=== PATIENT | female | born 1940 | race Hispanic/Latino ===

== ENCOUNTER 2020-02-07 06:44 | Observation (INO) | payer MEDICARE ==
[2020-02-05 15:06] LABS: BASOPHILS % 0.5 % (0.0-1.0); EOSINOPHILS # (AUTO) 0.1 (0.0-0.4); EOSINOPHILS % 1.5 % (0.0-6.0); HEMATOCRIT 34.2 % (34.2-44.1); HEMOGLOBIN 11.2 g/dL (12.0-16.0); LYMPHOCYTES # (AUTO) 2.3 (1.0-3.2); LYMPHOCYTES % 28.6 % (18.0-39.1); MEAN CORPUSCULAR HEMOGLOBIN 31.5 pg (28-32); MEAN CORPUSCULAR HGB CONC 32.7 g/dL (31-35); MEAN CORPUSCULAR VOLUME 96.1 fL (81-99); MONOCYTES # (AUTO) 0.7 (0.2-0.8); MONOCYTES % 8.8 % (4.4-11.3); NEUTROPHILS # (AUTO) 4.9 (2.1-6.9); NEUTROPHILS % 60.1 % (38.7-80.0); PLATELET COUNT 154 x10e3/uL (140-360); RED BLOOD COUNT 3.56 x10e6/uL (3.6-5.1); RED CELL DISTRIBUTION WIDTH 13.4 % (11.7-14.4)
[2020-02-05 15:25] LABS: INR 1.07; PROTHROMBIN TIME 14.4 seconds (11.9-14.5)
[2020-02-05 15:30] LABS: ANION GAP 16.5 mmol/L (8-16); CALCIUM 9.9 mg/dL (8.4-10.2); CREATININE, SERUM 1.11 mg/dL (0.57-1.11); POTASSIUM 4.5 mmol/L (3.5-5.1)
[~2020-02-07] VITALS: Ht 162.6 cm; Wt 77.6 kg
[~2020-02-07 06:44] MED LIST: ATORVASTATIN CA20 MG PO; BREO ELLIPTA 21 EACH INH; CARVEDILOL12.5 MG PO; CYMBALTA20 MG PO; DYMISTA NASAL S23 GM; ELIQUIS5 M1 PO; FISH OIL 1,0001 EAC2 PO; GABAPENTIN300 MG PO; KETOCONAZOLE 2%30 GM TOP; LEVEMIR FL100 UNIT/1 SC; LOSARTAN-HCTZ1 EAC1 PO; MECLIZINE HCL12.5 MG PO; METHENAMINE HIPP1 GM PO; NEOMYCIN-POLYMY10 ML EACH EAR; NOVOLOG100 UNIT/1 SC; OMEPRAZOLE40 MG PO; TUMS ULTRA400 MG PO; TYLENOL EXTRA500 MG PO
[2020-02-07] MEDS ORDERED: ACETAMINOPHEN 1000 MG/100 ML 100 ML IV ONE (07:28)
[2020-02-07] MEDS ORDERED: LIDOCAINE HCL (LTA) 4 ML SOLN ONE (07:28)
[2020-02-07] MEDS ORDERED: IBUPROFEN 800MG/ 200ML 200 ML IV ONE (07:28)
[2020-02-07] MEDS ORDERED: CEFAZOLIN SOD 1 GM/NS 50ML 100 ML IV ONE (08:05)
[2020-02-07] MEDS ORDERED: LIDOCAINE 2%/ EPINEPHRINE 20ML MDV ONE (08:35)
[2020-02-07] MEDS ORDERED: VANCOMYCIN HCL 1 GM VIAL ONE (08:35)
[2020-02-07] MEDS ORDERED: THROMBIN FOR SOLN 5,000 UNIT VIAL ONE (08:36)
[2020-02-07] MEDS ORDERED: DULOXETINE HCL 20 MG DELAYED RELEASE PO PRN (12:00)
[2020-02-07] MEDS ORDERED: OXYCODONE/ACETAMINOPHEN 5-325 1 EACH TABLET PO PRN (12:00)
[2020-02-07] MEDS ORDERED: ACETAMINOPHEN 325 MG TAB PO PRN (12:00)
[2020-02-07] MEDS ORDERED: NEOMYCIN/POLYMYX/HYDROC (OTIC) 10 ML BTL EACH EAR PRN (12:00)
[2020-02-07] MEDS ORDERED: NIACINAMIDE TOP PRN (12:00)
[2020-02-07] MEDS ORDERED: [UNRECOGNIZED DRUG - OTHER] TOP PRN (12:00)
[2020-02-07] MEDS ORDERED: ONDANSETRON HCL INJ 2MG/ML 2ML 2 MG/ML VIAL IV PRN (12:00)
[2020-02-07] MEDS ORDERED: MORPHINE SULFATE 5 MG/ML VIAL IM PRN (12:00)
[2020-02-07] MEDS ORDERED: KETOCONAZOLE TOP PRN (12:00)
[2020-02-07] MEDS ORDERED: ZOLPIDEM TARTRATE 5 MG TAB PO PRN (12:00)
[2020-02-07] MEDS ORDERED: PANTOPRAZOLE SOD 40 MG TABEC PO PRN (12:00)
[2020-02-07] MEDS ORDERED: FLUTICASONE NS PRN (12:00)
[2020-02-07] MEDS ORDERED: PROMETHAZINE HCL (IM) 25 MG/ML VIAL IM PRN (12:00)
[2020-02-07] MEDS ORDERED: AZELASTINE NS PRN (12:00)
[2020-02-07] MEDS ORDERED: MAGNESIUM/ALUMINUM/SIMETHICONE 30 ML UDC PO PRN (12:00)
[2020-02-07] MEDS ORDERED: CARISOPRODOL 350 MG TAB PO PRN (12:00)
[2020-02-07] MEDS ORDERED: MECLIZINE HCL 12.5 MG TAB PO PRN (12:00)
[2020-02-07] MEDS ORDERED: HYDROMORPHONE 2MG/ML 2 MG/ML ML IV PRN (12:00)
[2020-02-07] MEDS ORDERED: NEOSTIGMINE 1 MG/ML 10ML VIAL ONE (12:04)
[2020-02-07] MEDS ORDERED: ROCURONIUM BROMIDE 10 MG/ML 5ML VIAL IV ONE (12:04)
[2020-02-07] MEDS ORDERED: PROPOFOL IV EMULSION 10 MG/ML 20 ML VIAL ONE (12:04)
[2020-02-07] MEDS ORDERED: LIDOCAINE HCL 2% LOCAL INJ 5 ML SDV VIAL INJ ONE (12:04)
[2020-02-07] MEDS ORDERED: DEXAMETHASONE SOD PHOS INJ 4 MG/ML VIAL ONE (12:04)
[2020-02-07] MEDS ORDERED: SEVOFLURANE INHAL SOLN 250 ML PEN BTL ONE (12:04)
[2020-02-07] MEDS ORDERED: EPHEDRINE SULFATE INJ 50 MG/ML VIAL ONE (12:04)
[2020-02-07] MEDS ORDERED: ONDANSETRON HCL INJ 2MG/ML 2ML 2 MG/ML VIAL ONE (12:04)
[2020-02-07] MEDS ORDERED: LIDOCAINE HCL 2% JELLY 5 ML TUBE ONE (12:04)
[2020-02-07] MEDS ORDERED: GLYCOPYRROLATE INJ 0.2 MG/ML VIAL ONE (12:04)
[2020-02-07] MEDS ORDERED: CALCIUM CARBONATE 500 MG CHEWABLE TABS PO PRN (13:30)
[2020-02-07] MEDS ORDERED: MORPHINE SULFATE INJ 4 MG/ML INJ 1ML IM PRN (13:45)
[2020-02-07] MEDS ORDERED: HYDROMORPHONE 1MG/1ML INJ IV PRN (13:45)
[2020-02-07 13:52] VITALS: BP 165/61
[2020-02-07 14:08] VITALS: BP 165/61
[2020-02-07] MEDS: GABAPENTIN 300 MG CAP PO SCH ×2 (14:47→21:27)
[2020-02-07] MEDS: LACTATED RINGER'S 1,000 ML IV SCH ×2 (14:47→20:20)
[2020-02-07] MEDS: CEFAZOLIN SOD 1 GM/NS 50ML 50 ML IV SCH ×2 (14:47→21:36)
[2020-02-07 16:58] VITALS: BP 133/52
[2020-02-07] MEDS: INSULIN GLARGINE 100 UNITS/ML VIAL SQ SCH (17:00)
[2020-02-07] MEDS ORDERED: METHENAMINE HIPPURATE PO SCH (17:00)
[2020-02-07] MEDS ORDERED: NON-FORMULARY MEDICATION (Insulin Detemir (Levemir Flextouch) 40 UNITS) SC SCH (17:00)
[2020-02-07] MEDS: CARVEDILOL 12.5 MG TAB PO SCH (17:26)
[2020-02-07] MEDS: INSULIN LISPRO 100 UNIT/1 ML 3ML VIAL SQ SCH ×2 (17:27→21:00)
[2020-02-07 20:00] VITALS: BP 109/40
[2020-02-07] MEDS ORDERED: ATORVASTATIN 20 MG TAB PO SCH (21:00)
[2020-02-07] MEDS ORDERED: LOSARTAN POTASSIUM 100 MG TAB PO SCH (21:00)
[2020-02-07] MEDS ORDERED: NON-FORMULARY MEDICATION (Losartan/Hydrochlorothiazide (Losartan-Hctz 100-25 Mg Tab) 1 TAB PO SCH (21:00)
[2020-02-07] MEDS ORDERED: HYDROCHLOROTHIAZIDE 25 MG TAB PO SCH (21:00)
[2020-02-07] MEDS ORDERED: ATORVASTATIN 40 MG TAB PO SCH (21:00)
[2020-02-08] VITALS: BP 107/38
[2020-02-08 04:00] VITALS: BP 115/48
[2020-02-08] MEDS: LACTATED RINGER'S 1,000 ML IV SCH (04:40)
[2020-02-08] MEDS: CEFAZOLIN SOD 1 GM/NS 50ML 50 ML IV SCH (06:57)
[2020-02-08 08:00] VITALS: BP 115/48
[2020-02-08 08:30] VITALS: BP 132/52
[2020-02-08] MEDS: CARVEDILOL 12.5 MG TAB PO SCH (08:54)
[2020-02-08] MEDS: GABAPENTIN 300 MG CAP PO SCH (08:54)
[2020-02-08] MEDS ORDERED: NON-FORMULARY MEDICATION (Omega-3 Fatty Acids/Fish Oil (Fish Oil 1,000 Mg Capsule) 1,000 M PO SCH (09:00)
[2020-02-08] MEDS ORDERED: VILANTEROL INH SCH (09:00)
[2020-02-08] MEDS ORDERED: [UNRECOGNIZED DRUG - OTHER] INH SCH (09:00)
[2020-02-08] MEDS ORDERED: OMEGA 3 POLYUNSAT FATTY ACIDS 1000 MG SOFTGEL PO SCH (09:00)
[2020-02-08] MEDS: INSULIN LISPRO 100 UNIT/1 ML 3ML VIAL SQ SCH (09:27)
[2020-02-08] MEDS: INSULIN GLARGINE 100 UNITS/ML VIAL SQ SCH (09:27)
== END 2020-02-08 10:01 | disposition home or self-care (01) ==
LOC: OR 06:44 → PACU V 11:50 → MED/SURG 13:02
PROVIDERS: ADMIT Neurological Surgery; ATTEND Neurological Surgery
DX: M48.062 Spinal stenosis, lumbar region with neurogenic claudication (principal); Z20.828 Contact with and (suspected) exposure to other viral communicable diseases; Z01.818 Encounter for other preprocedural examination; J44.9 Chronic obstructive pulmonary disease, unspecified; I25.10 Atherosclerotic heart disease of native coronary artery without angina pectoris; Z95.1 Presence of aortocoronary bypass graft; E11.9 Type 2 diabetes mellitus without complications; E78.5 Hyperlipidemia, unspecified; M19.90 Unspecified osteoarthritis, unspecified site
CPT/HCPCS: 36415 ×3; 63047; 63048; 71046; 72020; 80048; 82948 ×2; 85025; 85610; 85730; 86850; 86900; 88304; 88311; 93005; G0378 ×2; J0131; J0690 ×2; J1100; J1815; J2001 ×3; J2405; J2704; J2710; J3370; J7121; U0002

== ENCOUNTER → 2022-05-13 | Outpatient (CLI) | payer MEDICARE | LOC: CT 11:35 | PROVIDERS: ATTEND Nurse Practitioner Adult Health | DX: M25.551 Pain in right hip (principal) ==

== ENCOUNTER 2022-07-01 17:15 | Inpatient (IN) | payer MEDICARE, OTHER ==
[~2022-07-01] VITALS: Ht 162.6 cm; Wt 77.6 kg
[2022-07-01 18:20] LABS: CLARITY,URINE CLEAR (CLEAR); COLOR,URINE YELLOW (YELLOW); KETONES,URINE NEGATIVE (NEGATIVE); LEUKOCYTE ESTERASE ,URINE NEGATIVE (NEGATIVE); NITRITE,URINE NEGATIVE (NEGATIVE); PROTEIN,URINE DIPSTICK NEGATIVE (NEGATIVE); URINE UROBILINOGEN 0.2 mg/dL (0.2 - 1)
[2022-07-01 18:27] LABS: BACTERIA,URINE FEW /HPF; EPITHELIAL CELLS,URINE MODERATE /LPF; WBC,URINE (MAN) 0-5 /HPF (0-5)
[2022-07-01 18:43] LABS: BASOPHILS % 0.7 % (0.0-1.0); EOSINOPHILS # (AUTO) 0.2 (0.0-0.4); EOSINOPHILS % 3.5 % (0.0-6.0); HEMATOCRIT 34.2 % (34.2-44.1); HEMOGLOBIN 11.3 g/dL (12.0-16.0); LYMPHOCYTES # (AUTO) 1.6 (1.0-3.2); LYMPHOCYTES % 28.1 % (18.0-39.1); MEAN CORPUSCULAR HEMOGLOBIN 31.4 pg (28-32); MONOCYTES # (AUTO) 0.5 (0.2-0.8); NEUTROPHILS # (AUTO) 3.4 (2.1-6.9); NEUTROPHILS % 58.2 % (38.7-80.0); PLATELET COUNT 136 x10e3/uL (140-360); RED CELL DISTRIBUTION WIDTH 13.2 % (11.7-14.4)
[2022-07-01 19:01] LABS: ALBUMIN/GLOBULIN RATIO 1.5 (0.8-2.0); ANION GAP 14.2 mmol/L (8-16); CALCIUM 9.8 mg/dL (8.4-10.2); CREATININE, SERUM 1.05 mg/dL (0.57-1.11); POTASSIUM 4.2 mmol/L (3.5-5.1)
[2022-07-01] MEDS ORDERED: SODIUM CHLORIDE 0.9% 1000ML 1,000 ML IV STA (19:05)
[2022-07-01] MEDS ORDERED: ONDANSETRON HCL INJ 2MG/ML 2ML 2 MG/ML VIAL IV STA (19:05)
[2022-07-01] MEDS ORDERED: Morphine 4mg INJECTION 4 MG/ML INJ IV STA (19:05)
[2022-07-01] MEDS ORDERED: IOPAMIDOL 370 MG/ML 100 ML INFUS..BTL INJ ONE (19:16)
[2022-07-01 20:20] LABS: CREATINE KINASE MB 2.8 ng/mL (0-5.0)
[2022-07-01] MEDS ORDERED: DICYCLOMINE HCL10 MG PO (21:41)
[2022-07-01] MEDS ORDERED: Morphine 4mg INJECTION 4 MG/ML INJ IV PRN (22:00)
[2022-07-01] MEDS: SODIUM CHLORIDE 0.9% 1000ML 1,000 ML IV SCH (22:41)
[2022-07-02] VITALS (12 sets, daily range): BP systolic 122–156; BP diastolic 57–79; PULSE 64–76; RESP 16–18; TEMP 97.6–98.6; O2SAT 96–100
[2022-07-02] MEDS: ONDANSETRON HCL INJ 2MG/ML 2ML 2 MG/ML VIAL IV PRN ×3 (00:33→14:18)
[2022-07-02 05:56] LABS: BASOPHILS % 0.7 % (0.0-1.0); EOSINOPHILS # (AUTO) 0.1 (0.0-0.4); EOSINOPHILS % 2.3 % (0.0-6.0); HEMATOCRIT 31.1 % (34.2-44.1); HEMOGLOBIN 9.9 g/dL (12.0-16.0); LYMPHOCYTES # (AUTO) 1.6 (1.0-3.2); LYMPHOCYTES % 36.2 % (18.0-39.1); MEAN CORPUSCULAR HEMOGLOBIN 30.9 pg (28-32); MEAN CORPUSCULAR HGB CONC 31.8 g/dL (31-35); MEAN CORPUSCULAR VOLUME 97.2 fL (81-99); MONOCYTES # (AUTO) 0.4 (0.2-0.8); MONOCYTES % 9.2 % (4.4-11.3); NEUTROPHILS # (AUTO) 2.2 (2.1-6.9); NEUTROPHILS % 51.1 % (38.7-80.0); PLATELET COUNT 117 x10e3/uL (140-360); RED CELL DISTRIBUTION WIDTH 13.2 % (11.7-14.4)
[2022-07-02] MEDS: SODIUM CHLORIDE 0.9% 1000ML 1,000 ML IV SCH ×3 (06:06→21:10)
[2022-07-02 06:26] LABS: ALBUMIN 3.3 g/dL (3.5-5.0); ALBUMIN/GLOBULIN RATIO 1.4 (0.8-2.0); ANION GAP 10.9 mmol/L (8-16); CALCIUM 8.8 mg/dL (8.4-10.2); CREATININE, SERUM 0.91 mg/dL (0.57-1.11); POTASSIUM 3.9 mmol/L (3.5-5.1)
[2022-07-02 06:56] LABS: CREATINE KINASE MB 2.1 ng/mL (0-5.0)
[2022-07-02 14:55] LABS: CREATINE KINASE MB 1.7 ng/mL (0-5.0)
[2022-07-02] MEDS ORDERED: DEXTROSE 50% SYRINGE 50 ML IV PRN (17:30)
[2022-07-02] MEDS ORDERED: ACETAMINOPHEN 325 MG TAB PO PRN (18:45)
[2022-07-02] MEDS ORDERED: DULOXETINE HCL 20 MG DELAYED RELEASE PO PRN (18:45)
[2022-07-02] MEDS: METOCLOPRAMIDE HCL 10 MG/2ML VIAL IV SCH (18:49)
[2022-07-02] MEDS ORDERED: METOCLOPRAMIDE HCL 10 MG/2ML VIAL IV SCH (21:00)
[2022-07-02] MEDS: ATORVASTATIN 40 MG TAB PO SCH (21:10)
[2022-07-02] MEDS: INSULIN LISPRO 100 UNIT/1 ML 3ML VIAL SQ SCH (21:32)
[2022-07-03] VITALS (7 sets, daily range): BP systolic 116–135; BP diastolic 52–101; PULSE 62–70; RESP 17–20; TEMP 97.1–98.6; O2SAT 96–100
[2022-07-03] MEDS: ONDANSETRON HCL INJ 2MG/ML 2ML 2 MG/ML VIAL IV PRN (00:08)
[2022-07-03 00:33] LABS: % IRON SATURATION 35 % (15-50); IRON 131 ug/dL (50-170); TOTAL IRON BINDING CAPACITY 378 ug/dL (261-478); TRANSFERRIN 270 mg/dL (180-382)
[2022-07-03] MEDS: METOCLOPRAMIDE HCL 10 MG/2ML VIAL IV SCH ×2 (05:28→15:51)
[2022-07-03] MEDS: SODIUM CHLORIDE 0.9% 1000ML 1,000 ML IV SCH ×3 (05:30→21:39)
[2022-07-03 06:49] LABS: BASOPHILS % 0.8 % (0.0-1.0); EOSINOPHILS # (AUTO) 0.2 (0.0-0.4); EOSINOPHILS % 3.3 % (0.0-6.0); HEMATOCRIT 30.8 % (34.2-44.1); HEMOGLOBIN 9.7 g/dL (12.0-16.0); LYMPHOCYTES # (AUTO) 1.5 (1.0-3.2); LYMPHOCYTES % 31.5 % (18.0-39.1); MEAN CORPUSCULAR HEMOGLOBIN 31.1 pg (28-32); MEAN CORPUSCULAR HGB CONC 31.5 g/dL (31-35); MEAN CORPUSCULAR VOLUME 98.7 fL (81-99); MONOCYTES # (AUTO) 0.4 (0.2-0.8); MONOCYTES % 9.2 % (4.4-11.3); NEUTROPHILS # (AUTO) 2.6 (2.1-6.9); NEUTROPHILS % 54.8 % (38.7-80.0); PLATELET COUNT 99 x10e3/uL (140-360); RED BLOOD COUNT 3.12 x10e6/uL (3.6-5.1)
[2022-07-03 07:08] LABS: CREATINE KINASE MB 1.4 ng/mL (0-5.0)
[2022-07-03 07:09] LABS: ALBUMIN 3.1 g/dL (3.5-5.0); ALBUMIN/GLOBULIN RATIO 1.3 (0.8-2.0); ANION GAP 11.3 mmol/L (8-16); CALCIUM 8.6 mg/dL (8.4-10.2); CREATININE, SERUM 0.94 mg/dL (0.57-1.11); POTASSIUM 4.3 mmol/L (3.5-5.1)
[2022-07-03] MEDS: INSULIN LISPRO 100 UNIT/1 ML 3ML VIAL SQ SCH ×4 (07:30→21:51)
[2022-07-03] MEDS ORDERED: APIXABAN 5 MG TABLET PO SCH (09:00)
[2022-07-03] MEDS: CARVEDILOL 12.5 MG TAB PO SCH ×2 (09:15→15:52)
[2022-07-03] MEDS ORDERED: FENTANYL CITRATE/PF 100MCG/2 ML INJ ONE (13:31)
[2022-07-03] MEDS ORDERED: LIDOCAINE HCL 2% LOCAL INJ 5 ML SDV VIAL INJ ONE (13:35)
[2022-07-03] MEDS ORDERED: PROPOFOL IV EMULSION 10 MG/ML 20 ML VIAL ONE (13:35)
[2022-07-03] MEDS: ATORVASTATIN 40 MG TAB PO SCH (21:36)
[2022-07-04 04:00] VITALS: BP 118/52; PULSE 70; RESP 18; TEMP 98.4; O2SAT 98
[2022-07-04] MEDS: SODIUM CHLORIDE 0.9% 1000ML 1,000 ML IV SCH ×3 (05:36→21:44)
[2022-07-04] MEDS: METOCLOPRAMIDE HCL 10 MG/2ML VIAL IV SCH ×2 (05:36→16:49)
[2022-07-04 06:47] LABS: BASOPHILS % 0.5 % (0.0-1.0); EOSINOPHILS # (AUTO) 0.1 (0.0-0.4); EOSINOPHILS % 3.7 % (0.0-6.0); HEMOGLOBIN 9.4 g/dL (12.0-16.0); LYMPHOCYTES # (AUTO) 1.3 (1.0-3.2); LYMPHOCYTES % 33.1 % (18.0-39.1); MEAN CORPUSCULAR HEMOGLOBIN 31.2 pg (28-32); MEAN CORPUSCULAR HGB CONC 31.3 g/dL (31-35); MEAN CORPUSCULAR VOLUME 99.7 fL (81-99); MONOCYTES # (AUTO) 0.3 (0.2-0.8); MONOCYTES % 8.2 % (4.4-11.3); NEUTROPHILS # (AUTO) 2.1 (2.1-6.9); NEUTROPHILS % 54.2 % (38.7-80.0); PLATELET COUNT 95 x10e3/uL (140-360); RED BLOOD COUNT 3.01 x10e6/uL (3.6-5.1)
[2022-07-04 07:24] LABS: ALBUMIN 3.1 g/dL (3.5-5.0); ALBUMIN/GLOBULIN RATIO 1.4 (0.8-2.0); ANION GAP 11.5 mmol/L (8-16); CALCIUM 8.4 mg/dL (8.4-10.2); CREATININE, SERUM 0.85 mg/dL (0.57-1.11); POTASSIUM 3.5 mmol/L (3.5-5.1)
[2022-07-04 08:25] VITALS: BP 121/58; PULSE 64; RESP 18; TEMP 98; O2SAT 97
[2022-07-04] MEDS: CARVEDILOL 12.5 MG TAB PO SCH ×2 (08:46→16:49)
[2022-07-04] MEDS: INSULIN LISPRO 100 UNIT/1 ML 3ML VIAL SQ SCH ×4 (13:20→20:58)
[2022-07-04 13:27] VITALS: BP 149/57; PULSE 61; RESP 16; TEMP 98; O2SAT 98
[2022-07-04 16:22] VITALS: BP 121/61; PULSE 71; RESP 18; TEMP 99.5; O2SAT 98
[2022-07-04] MEDS: ATORVASTATIN 40 MG TAB PO SCH (21:00)
[2022-07-04 21:55] VITALS: BP 138/50; PULSE 58; RESP 16; TEMP 98.6; O2SAT 97
[2022-07-04 22:00] VITALS: BP 138/50; PULSE 58; RESP 16; TEMP 98.6; O2SAT 97
[2022-07-05] VITALS (7 sets, daily range): BP systolic 120–158; BP diastolic 53–87; PULSE 56–85; RESP 16–18; TEMP 98.1–98.4; O2SAT 98–100
[2022-07-05] MEDS ORDERED: DIPHENOXYLATE/ATROPINE TAB PO ONE (00:30)
[2022-07-05] MEDS ORDERED: CYANOCOBALAMIN INJ 1,000 MCG/ML VIAL IM ONE (00:30)
[2022-07-05] MEDS: SODIUM CHLORIDE 0.9% 1000ML 1,000 ML IV SCH ×3 (05:59→22:00)
[2022-07-05] MEDS: SUCRALFATE 1 GM TAB PO SCH ×4 (09:12→20:38)
[2022-07-05] MEDS: CARVEDILOL 12.5 MG TAB PO SCH ×2 (09:12→16:58)
[2022-07-05] MEDS: CYANOCOBALAMIN INJ 1,000 MCG/ML VIAL IM SCH (09:13)
[2022-07-05] MEDS: INSULIN LISPRO 100 UNIT/1 ML 3ML VIAL SQ SCH ×4 (09:53→20:43)
[2022-07-05] MEDS: ATORVASTATIN 40 MG TAB PO SCH (20:32)
[2022-07-06] MEDS: SODIUM CHLORIDE 0.9% 1000ML 1,000 ML IV SCH (01:40)
[2022-07-06 01:58] VITALS: BP 125/58; PULSE 54; RESP 16; TEMP 98.3; O2SAT 97
[2022-07-06 05:09] VITALS: BP 132/46; PULSE 65; RESP 16; TEMP 98.6; O2SAT 98
[2022-07-06 05:34] LABS: BASOPHILS % 0.6 % (0.0-1.0); EOSINOPHILS # (AUTO) 0.2 (0.0-0.4); EOSINOPHILS % 3.6 % (0.0-6.0); HEMATOCRIT 27.6 % (34.2-44.1); HEMOGLOBIN 8.7 g/dL (12.0-16.0); LYMPHOCYTES # (AUTO) 1.4 (1.0-3.2); LYMPHOCYTES % 29.3 % (18.0-39.1); MEAN CORPUSCULAR HEMOGLOBIN 31.1 pg (28-32); MEAN CORPUSCULAR HGB CONC 31.5 g/dL (31-35); MEAN CORPUSCULAR VOLUME 98.6 fL (81-99); MONOCYTES # (AUTO) 0.4 (0.2-0.8); NEUTROPHILS # (AUTO) 2.7 (2.1-6.9); NEUTROPHILS % 57.1 % (38.7-80.0); PLATELET COUNT 90 x10e3/uL (140-360); RED CELL DISTRIBUTION WIDTH 13.2 % (11.7-14.4)
[2022-07-06 05:54] LABS: ALBUMIN/GLOBULIN RATIO 1.4 (0.8-2.0); ANION GAP 8.8 mmol/L (8-16); CALCIUM 8.5 mg/dL (8.4-10.2); CREATININE, SERUM 0.94 mg/dL (0.57-1.11); POTASSIUM 3.8 mmol/L (3.5-5.1)
[2022-07-06 08:45] VITALS: BP 174/65; PULSE 74; RESP 17; TEMP 98.4; O2SAT 97
[2022-07-06 08:55] VITALS: BP 174/65; PULSE 74; RESP 17; TEMP 98.4; O2SAT 97
[2022-07-06 09:15] VITALS: BP 174/65; PULSE 74; RESP 17; TEMP 98.4; O2SAT 97
[2022-07-06] MEDS: SUCRALFATE 1 GM TAB PO SCH (09:38)
[2022-07-06] MEDS: CYANOCOBALAMIN INJ 1,000 MCG/ML VIAL IM SCH (09:39)
[2022-07-06] MEDS: CARVEDILOL 12.5 MG TAB PO SCH (09:39)
[2022-07-06] MEDS: INSULIN LISPRO 100 UNIT/1 ML 3ML VIAL SQ SCH ×2 (09:49→12:00)
[2022-07-06 11:50] VITALS: BP 142/64; PULSE 60; RESP 18; TEMP 98.2; O2SAT 100
[2022-07-06] MEDS ORDERED: SALMETEROL/FLUTICASONE 250/50 INH SCH (14:00)
== END 2022-07-06 16:07 | disposition home or self-care (01) | DRG 392 ==
LOC: ER 17:32 → ERHOLD 22:03 → MED/SURG3 23:56 → OBSVTOIN 07-03 08:20
PROVIDERS: ADMIT Family Medicine; ATTEND Family Medicine
PROC: 0DB78ZX Excision of Stomach, Pylorus, Via Natural or Artificial Opening Endoscopic, Diagnostic (ICD-10-PCS; principal; 2022-07-03 14:22)
DX: K29.00 Acute gastritis without bleeding (principal); K86.2 Cyst of pancreas; K20.90 Esophagitis, unspecified without bleeding; R19.7 Diarrhea, unspecified; R91.1 Solitary pulmonary nodule; I10 Essential (primary) hypertension; E78.5 Hyperlipidemia, unspecified; I48.0 Paroxysmal atrial fibrillation; I25.10 Atherosclerotic heart disease of native coronary artery without angina pectoris; E11.9 Type 2 diabetes mellitus without complications; Z79.4 Long term (current) use of insulin; Z87.440 Personal history of urinary (tract) infections; Z96.659 Presence of unspecified artificial knee joint; D64.9 Anemia, unspecified; J44.9 Chronic obstructive pulmonary disease, unspecified
CPT/HCPCS: 0223U; 36415; 43239; 74177; 80053; 81001; 82550; 82553; 82607; 82746; 82948; 83540; 83690; 84466; 84484; 85025; 85045; 87045; 88304; 88305; 88312; 88342; 93005; 93306; 94799; 96361; 96372; 99284; G0378; J2001; J2270; J2405; J2543; J2765; J3420; J7030; Q9967

== ENCOUNTER 2023-11-16 12:15 | Emergency (ER) | payer MEDICARE ==
[~2023-11-16] VITALS: Ht 167.6 cm; Wt 77.6 kg
[~2023-11-16 12:15] MED LIST changes: +DICYCLOMINE HCL10 MG PO
[2023-11-16 12:25] VITALS: TEMP 98.1
[2023-11-16 13:11] LABS: BASOPHILS % 0.6 % (0.0-1.0); EOSINOPHILS % 0.8 % (0.0-6.0); HEMATOCRIT 37.5 % (34.2-44.1); LYMPHOCYTES # (AUTO) 1.2 (1.0-3.2); LYMPHOCYTES % 22.8 % (18.0-39.1); MEAN CORPUSCULAR HEMOGLOBIN 31.8 pg (28-32); MEAN CORPUSCULAR VOLUME 99.5 fL (81-99); MONOCYTES # (AUTO) 0.4 (0.2-0.8); MONOCYTES % 8.6 % (4.4-11.3); NEUTROPHILS # (AUTO) 3.4 (2.1-6.9); NEUTROPHILS % 66.8 % (38.7-80.0); PLATELET COUNT 145 x10e3/uL (140-360); RED BLOOD COUNT 3.77 x10e6/uL (3.6-5.1); RED CELL DISTRIBUTION WIDTH 13.2 % (11.7-14.4); WHITE BLOOD COUNT 5.14 x10e3/uL (4.8-10.8)
[2023-11-16] MEDS: ONDANSETRON HCL INJ 2MG/ML 2ML 2 MG/ML VIAL IV STA (14:03)
[2023-11-16] MEDS: Morphine 2mg Syringe 2 MG/ML SYR IV ONE (14:03)
[2023-11-16] MEDS: SODIUM CHLORIDE 0.9% 1000ML 1,000 ML IV ONE (14:03)
[2023-11-16 14:14] LABS: CLARITY,URINE SL CLOUDY (CLEAR); COLOR,URINE YELLOW (YELLOW)
[2023-11-16 14:15] LABS: BILIRUBIN,URINE NEGATIVE (NEGATIVE); GLUCOSE, URINE 2+ (NEGATIVE); KETONES,URINE NEGATIVE (NEGATIVE); LEUKOCYTE ESTERASE ,URINE SMALL (NEGATIVE); NITRITE,URINE POSITIVE (NEGATIVE); PH,URINE 6 (5 - 7); PROTEIN,URINE DIPSTICK TRACE (NEGATIVE); URINE UROBILINOGEN 0.2 mg/dL (0.2 - 1)
[2023-11-16 14:24] LABS: BACTERIA,URINE MODERATE /HPF; EPITHELIAL CELLS,URINE MODERATE /LPF; WBC,URINE (MAN) 21-50 /HPF (0-5)
[2023-11-16 14:35] LABS: ALBUMIN 3.7 g/dL (3.5-5.0); ALBUMIN/GLOBULIN RATIO 1.5 (0.8-2.0); ANION GAP 16.7 mmol/L (8-16); BILIRUBIN,TOTAL 0.8 mg/dL (0.2-1.2); CALCIUM 9.5 mg/dL (8.4-10.2); CREATININE, SERUM 1.56 mg/dL (0.57-1.11); POTASSIUM 3.7 mmol/L (3.5-5.1); TOTAL PROTEIN 6.1 g/dL (6.5-8.1)
[2023-11-16] MEDS ORDERED: ONDANSETRON ODT4 MG PO (15:46)
[2023-11-16] MEDS ORDERED: CEPHALEXIN500 MG PO (15:46)
[2023-11-16 15:49] VITALS: PULSE 72; RESP 18
[2023-11-16 16:11] VITALS: BP 157/67; PULSE 72; RESP 16; O2SAT 97
== END 2023-11-16 16:07 | disposition home or self-care (01) ==
LOC: ER 12:37
DX: R53.1 Weakness (principal); N39.0 Urinary tract infection, site not specified; R10.13 Epigastric pain; R11.2 Nausea with vomiting, unspecified; E11.65 Type 2 diabetes mellitus with hyperglycemia; I10 Essential (primary) hypertension; J44.9 Chronic obstructive pulmonary disease, unspecified; R94.31 Abnormal electrocardiogram [ECG] [EKG]; Z95.1 Presence of aortocoronary bypass graft
CPT/HCPCS: 36415; 74176; 80053; 81001; 83690; 85025; 93005; 99284; J0696; J2270; J2405; J7030

== ENCOUNTER 2023-11-22 07:28 | Emergency (ER) | payer MEDICARE ==
[~2023-11-22] VITALS: Ht 162.6 cm; Wt 68.5 kg
[~2023-11-22 07:28] MED LIST changes: +CEPHALEXIN500 MG PO; +ONDANSETRON ODT4 MG PO
[2023-11-22 07:45] VITALS: PULSE 73; RESP 15; TEMP 99; O2SAT 100
[2023-11-22 08:45] LABS: BASOPHILS % 0.3 % (0.0-1.0); EOSINOPHILS # (AUTO) 0.1 (0.0-0.4); EOSINOPHILS % 1.1 % (0.0-6.0); HEMATOCRIT 32.8 % (34.2-44.1); HEMOGLOBIN 10.6 g/dL (12.0-16.0); LYMPHOCYTES # (AUTO) 1.1 (1.0-3.2); LYMPHOCYTES % 17.7 % (18.0-39.1); MEAN CORPUSCULAR HEMOGLOBIN 32.5 pg (28-32); MEAN CORPUSCULAR HGB CONC 32.3 g/dL (31-35); MEAN CORPUSCULAR VOLUME 100.6 fL (81-99); MONOCYTES # (AUTO) 0.7 (0.2-0.8); MONOCYTES % 11.4 % (4.4-11.3); NEUTROPHILS # (AUTO) 4.4 (2.1-6.9); NEUTROPHILS % 68.9 % (38.7-80.0); PLATELET COUNT 132 x10e3/uL (140-360); RED BLOOD COUNT 3.26 x10e6/uL (3.6-5.1); RED CELL DISTRIBUTION WIDTH 13.8 % (11.7-14.4); WHITE BLOOD COUNT 6.33 x10e3/uL (4.8-10.8)
[2023-11-22 08:51] LABS: CLARITY,URINE CLEAR (CLEAR); COLOR,URINE ORANGE (YELLOW); PH,URINE 6.5 (5 - 7)
[2023-11-22 08:52] LABS: GLUCOSE, URINE 500 (NEGATIVE); LEUKOCYTE ESTERASE ,URINE NEGATIVE (NEGATIVE); NITRITE,URINE NEGATIVE (NEGATIVE); PROTEIN,URINE DIPSTICK 1+ (NEGATIVE)
[2023-11-22 08:53] LABS: BILIRUBIN,URINE NEGATIVE (NEGATIVE); KETONES,URINE NEGATIVE (NEGATIVE); URINE UROBILINOGEN 0.2 mg/dL (0.2 - 1)
[2023-11-22 08:54] LABS: INR 1.26; PROTHROMBIN TIME 16.4 seconds (11.9-14.5)
[2023-11-22 08:55] LABS: PARTIAL THROMBOPLASTIN TIME 31.1 seconds (23.8-35.5)
[2023-11-22 09:01] LABS: BACTERIA,URINE FEW /HPF
[2023-11-22 09:06] LABS: EPITHELIAL CELLS,URINE FEW /LPF
[2023-11-22 09:07] LABS: RBC,URINE 0-5 /HPF (0-5)
[2023-11-22 09:08] LABS: WBC,URINE (MAN) >50 /HPF (0-5)
[2023-11-22 09:14] LABS: ALBUMIN 3.4 g/dL (3.5-5.0); ALBUMIN/GLOBULIN RATIO 1.3 (0.8-2.0); BILIRUBIN,TOTAL 0.7 mg/dL (0.2-1.2); CALCIUM 9.7 mg/dL (8.4-10.2); CREATININE, SERUM 1.18 mg/dL (0.57-1.11); MAGNESIUM 1.7 MG/DL (1.3-2.1)
[2023-11-22] MEDS: SODIUM CHLORIDE 0.9% 1000ML 1,000 ML IV STA (10:23)
[2023-11-22] MEDS ORDERED: IOPAMIDOL 370 MG/ML 100 ML INFUS..BTL INJ ONE (10:52)
[2023-11-22] MEDS ORDERED: CEFDINIR300 MG PO (11:55)
== END 2023-11-22 12:59 | disposition home or self-care (01) ==
LOC: ER 07:31
DX: R50.9 Fever, unspecified (principal); R33.9 Retention of urine, unspecified; N39.0 Urinary tract infection, site not specified; R10.32 Left lower quadrant pain; I10 Essential (primary) hypertension; E11.65 Type 2 diabetes mellitus with hyperglycemia; J44.9 Chronic obstructive pulmonary disease, unspecified; Z95.1 Presence of aortocoronary bypass graft
CPT/HCPCS: 36415; 74177; 80053; 81001; 83735; 85025; 85610; 85730; 87086; 99284; J2543; J7030; Q9967; 51700

== ENCOUNTER 2024-02-09 16:30 | Emergency (ER) | payer MEDICARE ==
[~2024-02-09] VITALS: Ht 162.6 cm; Wt 74.4 kg
[~2024-02-09 16:30] MED LIST changes: +CEFDINIR300 MG PO
[2024-02-09 18:12] LABS: BASOPHILS # (AUTO) 0.1 (0.0-0.1); BASOPHILS % 0.9 % (0.0-1.0); EOSINOPHILS # (AUTO) 0.2 (0.0-0.4); EOSINOPHILS % 2.7 % (0.0-6.0); HEMATOCRIT 36.6 % (34.2-44.1); HEMOGLOBIN 11.3 g/dL (12.0-16.0); LYMPHOCYTES # (AUTO) 1.7 (1.0-3.2); LYMPHOCYTES % 24.7 % (18.0-39.1); MEAN CORPUSCULAR HEMOGLOBIN 31.8 pg (28-32); MEAN CORPUSCULAR HGB CONC 30.9 g/dL (31-35); MEAN CORPUSCULAR VOLUME 103.1 fL (81-99); MONOCYTES # (AUTO) 0.8 (0.2-0.8); MONOCYTES % 11.8 % (4.4-11.3); NEUTROPHILS # (AUTO) 4.2 (2.1-6.9); NEUTROPHILS % 59.6 % (38.7-80.0); PLATELET COUNT 148 x10e3/uL (140-360); RED BLOOD COUNT 3.55 x10e6/uL (3.6-5.1); RED CELL DISTRIBUTION WIDTH 12.6 % (11.7-14.4); WHITE BLOOD COUNT 6.97 x10e3/uL (4.8-10.8)
[2024-02-09 18:14] LABS: BILIRUBIN,URINE NEGATIVE (NEGATIVE); CLARITY,URINE HAZY (CLEAR); COLOR,URINE YELLOW (YELLOW); GLUCOSE, URINE 500 (NEGATIVE); KETONES,URINE NEGATIVE (NEGATIVE); LEUKOCYTE ESTERASE ,URINE MODERATE (NEGATIVE); NITRITE,URINE NEGATIVE (NEGATIVE); PH,URINE 6 (5 - 7); PROTEIN,URINE DIPSTICK TRACE (NEGATIVE); URINE UROBILINOGEN 0.2 mg/dL (0.2 - 1)
[2024-02-09 18:27] LABS: ALBUMIN 3.7 g/dL (3.5-5.0); ALBUMIN/GLOBULIN RATIO 1.3 (0.8-2.0); ANION GAP 14.9 mmol/L (8-16); BILIRUBIN,TOTAL 0.6 mg/dL (0.2-1.2); CALCIUM 9.3 mg/dL (8.4-10.2); CREATININE, SERUM 1.02 mg/dL (0.57-1.11); POTASSIUM 3.9 mmol/L (3.5-5.1); TOTAL PROTEIN 6.5 g/dL (6.5-8.1)
[2024-02-09 18:33] LABS: TROPONIN I 0.018 ng/mL (0-0.300)
[2024-02-09 18:34] LABS: WBC,URINE (MAN) >50 /HPF (0-5)
[2024-02-09] MEDS: FAMOTIDINE 20 MG/2 ML VIAL IV STA (18:34)
[2024-02-09] MEDS: SODIUM CHLORIDE 0.9% 1000ML 1,000 ML IV STA (18:35)
[2024-02-09] MEDS: ONDANSETRON HCL INJ 2MG/ML 2ML 2 MG/ML VIAL IV STA (18:35)
[2024-02-09 18:42] LABS: BACTERIA,URINE FEW /HPF
[2024-02-09] MEDS ORDERED: IOPAMIDOL 370 MG/ML 100 ML INFUS..BTL INJ ONE (18:46)
[2024-02-09] MEDS: DICYCLOMINE HCL 10 MG CAP PO STA (20:57)
[2024-02-09] MEDS ORDERED: ONDANSETRON ODT4 MG PO (20:59)
[2024-02-09] MEDS ORDERED: PROTONIX20 MG PO (20:59)
[2024-02-09 21:15] VITALS: PULSE 77; RESP 16; TEMP 97.9; O2SAT 100
== END 2024-02-09 21:14 | disposition home or self-care (01) ==
LOC: ER 18:03
DX: R10.13 Epigastric pain (principal); L29.9 Pruritus, unspecified; K57.90 Diverticulosis of intestine, part unspecified, without perforation or abscess without bleeding; E11.65 Type 2 diabetes mellitus with hyperglycemia; J44.9 Chronic obstructive pulmonary disease, unspecified; K76.0 Fatty (change of) liver, not elsewhere classified; K44.9 Diaphragmatic hernia without obstruction or gangrene; I10 Essential (primary) hypertension; E78.5 Hyperlipidemia, unspecified; D17.71 Benign lipomatous neoplasm of kidney; K21.9 Gastro-esophageal reflux disease without esophagitis; Z95.1 Presence of aortocoronary bypass graft; I25.2 Old myocardial infarction
CPT/HCPCS: 36415; 74177; 80053; 81001; 82550; 83690; 84484; 85025; 93005; 99284; J2405; J7030; Q9967

== ENCOUNTER 2024-09-29 14:36 | Inpatient (IN) | payer MEDICARE ==
[~2024-09-29] VITALS: Ht 162.6 cm; Wt 74.4 kg
[~2024-09-29 14:36] MED LIST changes: +PROTONIX20 MG PO
[2024-09-29 16:03] LABS: LEUKOCYTE ESTERASE ,URINE SMALL (NEGATIVE); PROTEIN,URINE DIPSTICK NEGATIVE (NEGATIVE); URINE UROBILINOGEN 0.2 mg/dL (0.2 - 1)
[2024-09-29 16:14] LABS: EPITHELIAL CELLS,URINE FEW /LPF; WBC,URINE (MAN) >50 /HPF (0-5)
[2024-09-29 17:25] LABS: BASOPHILS % 0.3 % (0.0-1.0); EOSINOPHILS % 0.9 % (0.0-6.0); LYMPHOCYTES % 21.5 % (18.0-39.1); MONOCYTES % 7.9 % (4.4-11.3); NEUTROPHILS % 68.7 % (38.7-80.0); RED CELL DISTRIBUTION WIDTH 13.6 % (11.7-14.4)
[2024-09-29 17:35] LABS: INR 0.92
[2024-09-29] MEDS ORDERED: ONDANSETRON HCL INJ 2MG/ML 2ML 2 MG/ML VIAL ONE (17:40)
[2024-09-29] MEDS ORDERED: SODIUM CHLORIDE 0.9% 1000ML 1,000 ML ONE (17:40)
[2024-09-29 17:46] LABS: EST GLOMERULAR FILTRATION RATE 41.0 ML/MIN (>=60)
[2024-09-29 17:57] LABS: CORONAVIRUS COVID-19 AG NEGATIVE (NEGATIVE)
[2024-09-29] MEDS ORDERED: IOPAMIDOL 370 MG/ML 100 ML INFUS..BTL INJ ONE (18:02)
[2024-09-29] MEDS: SODIUM CHLORIDE 0.9% 1000ML 1,000 ML IV STA (18:07)
[2024-09-29] MEDS: ONDANSETRON HCL INJ 2MG/ML 2ML 2 MG/ML VIAL IV STA (18:08)
[2024-09-29] MEDS: CEFTRIAXONE 2 GM in SODIUM CHLORIDE 0.9% 100 ML IV ONE (18:59)
[2024-09-29 19:05] VITALS: PULSE 86; RESP 16; TEMP 97.6
[2024-09-29] MEDS: FLUCONAZOLE 100 MG TAB PO ONE (20:35)
[2024-09-29] MEDS: SODIUM CHLORIDE 0.9% 1000ML 1,000 ML IV SCH (20:36)
[2024-09-29] MEDS: Vancomycin IV 1 GM in SODIUM CHLORIDE 0.9% 250ML 250 ML IV ONE (20:36)
[2024-09-29] MEDS: NYSTATIN 15 GM POWDER UD BTL TOP SCH (21:00)
[2024-09-29 21:20] VITALS: BP 114/94; PULSE 87; RESP 16; TEMP 97.3; O2SAT 100
[2024-09-29] MEDS ORDERED: GABAPENTIN400 MG PO (23:16)
[2024-09-29] MEDS ORDERED: TRADJENTA5 MG PO (23:16)
[2024-09-29] MEDS ORDERED: TOUJEO MAX300 UNIT/1 SC (23:16)
[2024-09-29] MEDS ORDERED: LORATADINE10 MG PO (23:16)
[2024-09-29] MEDS ORDERED: FUROSEMIDE40 MG PO (23:16)
[2024-09-29] MEDS ORDERED: POTASSIUM CHLO20 ME2 PO (23:16)
[2024-09-29] MEDS ORDERED: JARDIANCE10 MG PO (23:16)
[2024-09-29] MEDS ORDERED: HYDROXYZINE HCL25 MG PO (23:16)
[2024-09-29] MEDS ORDERED: MONTELUKAST SOD10 MG PO (23:16)
[2024-09-29] MEDS ORDERED: LOSARTAN-HCTZ1 EAC1 PO (23:26)
[2024-09-30] VITALS (10 sets, daily range): BP systolic 101–148; BP diastolic 56–94; PULSE 65–87; RESP 16–18; TEMP 96.9–98.1; O2SAT 100
[2024-09-30] MEDS ORDERED: ONDANSETRON HCL INJ 2MG/ML 2ML 2 MG/ML VIAL IV PRN (05:15)
[2024-09-30 08:02] LABS: BASOPHILS % 0.3 % (0.0-1.0); EOSINOPHILS % 1.7 % (0.0-6.0); LYMPHOCYTES % 26.1 % (18.0-39.1); MONOCYTES % 11.1 % (4.4-11.3); NEUTROPHILS % 60.0 % (38.7-80.0); RED CELL DISTRIBUTION WIDTH 13.6 % (11.7-14.4)
[2024-09-30 08:13] LABS: EST GLOMERULAR FILTRATION RATE 48.0 ML/MIN (>=60)
[2024-09-30] MEDS: MONTELUKAST SODIUM 10 MG TAB PO SCH (09:33)
[2024-09-30] MEDS: EMPAGLIFLOZIN 10 MG TABLET PO SCH (09:33)
[2024-09-30] MEDS: GABAPENTIN 300 MG CAP PO SCH (09:33)
[2024-09-30] MEDS: CARVEDILOL 12.5 MG TAB PO SCH (09:33)
[2024-09-30] MEDS: LORATADINE 10 MG TAB PO SCH (09:33)
[2024-09-30] MEDS: DICYCLOMINE HCL 10 MG CAP PO PRN (11:32)
[2024-09-30] MEDS: ONDANSETRON HCL INJ 2MG/ML 2ML 2 MG/ML VIAL IV PRN (11:32)
[2024-09-30] MEDS: ATORVASTATIN 40 MG TAB PO SCH (21:42)
[2024-10-01] VITALS (8 sets, daily range): BP systolic 97–142; BP diastolic 55–79; PULSE 61–92; RESP 18–20; TEMP 97.8–98.9; O2SAT 95–100
[2024-10-01] MEDS: ACETAMINOPHEN 325 MG TAB PO PRN (00:01)
[2024-10-01 05:41] LABS: BASOPHILS % 0.4 % (0.0-1.0); EOSINOPHILS % 2.1 % (0.0-6.0); LYMPHOCYTES % 26.0 % (18.0-39.1); MONOCYTES % 9.8 % (4.4-11.3); NEUTROPHILS % 60.8 % (38.7-80.0); RED CELL DISTRIBUTION WIDTH 13.8 % (11.7-14.4)
[2024-10-01 06:12] LABS: EST GLOMERULAR FILTRATION RATE 44.0 ML/MIN (>=60)
[2024-10-01] MEDS: INSULIN GLARGINE 100 UNITS/ML VIAL SQ SCH (20:42)
[2024-10-02] VITALS: BP 128/79; PULSE 74; RESP 18; TEMP 97.9; O2SAT 97
[2024-10-02 04:00] VITALS: BP 126/84; PULSE 86; RESP 18; TEMP 98; O2SAT 100
[2024-10-02 05:30] LABS: BASOPHILS % 0.5 % (0.0-1.0); EOSINOPHILS % 2.7 % (0.0-6.0); LYMPHOCYTES % 27.2 % (18.0-39.1); MONOCYTES % 9.1 % (4.4-11.3); NEUTROPHILS % 59.8 % (38.7-80.0); RED CELL DISTRIBUTION WIDTH 13.8 % (11.7-14.4)
[2024-10-02 06:09] LABS: EST GLOMERULAR FILTRATION RATE 57.0 ML/MIN (>=60)
[2024-10-02 08:09] VITALS: BP 127/61; PULSE 70; RESP 18; TEMP 97; O2SAT 97
[2024-10-02] MEDS: APIXABAN 5 MG TABLET PO SCH (09:44)
[2024-10-02 10:09] VITALS: BP 127/61; PULSE 70; RESP 18; TEMP 97; O2SAT 97
[2024-10-02 11:31] VITALS: BP 138/63; PULSE 70; RESP 18; TEMP 97.7; O2SAT 99
[2024-10-02 15:53] VITALS: BP 136/97; PULSE 87; RESP 18; TEMP 97.8; O2SAT 100
== END 2024-10-02 18:42 | disposition home health service (06) | DRG 690 ==
LOC: ER 15:30 → ERHOLD 20:07 → MED/SURG2 21:06
PROVIDERS: ADMIT Family Medicine; ATTEND Family Medicine
DX: N39.0 Urinary tract infection, site not specified (principal); N17.9 Acute kidney failure, unspecified; I48.20 Chronic atrial fibrillation, unspecified; I12.9 Hypertensive chronic kidney disease with stage 1 through stage 4 chronic kidney disease, or unspecified chronic kidney disease; N18.31 Chronic kidney disease, stage 3a; E78.5 Hyperlipidemia, unspecified; E86.0 Dehydration; E11.22 Type 2 diabetes mellitus with diabetic chronic kidney disease; J44.9 Chronic obstructive pulmonary disease, unspecified; K21.9 Gastro-esophageal reflux disease without esophagitis; R68.84 Jaw pain; R53.81 Other malaise; Z79.4 Long term (current) use of insulin; Z79.51 Long term (current) use of inhaled steroids; Z79.01 Long term (current) use of anticoagulants; Z11.52 Encounter for screening for COVID-19; I25.2 Old myocardial infarction; Z90.710 Acquired absence of both cervix and uterus; Z95.1 Presence of aortocoronary bypass graft; Z88.1 Allergy status to other antibiotic agents; Z88.2 Allergy status to sulfonamides; Z88.5 Allergy status to narcotic agent; Z88.8 Allergy status to other drugs, medicaments and biological substances
CPT/HCPCS: 36415; 70450; 70491; 71045; 74176; 80053; 81001; 82550; 82948; 83518; 83735; 83880; 84484; 85025; 85610; 85730; 87040; 87070; 87086; 93005; 99284; J0696; J2405; J2470; J3373; J7030; J7050; Q9967